=== PATIENT | female | born 1985 | race Caucasian/White ===

== ENCOUNTER 2016-09-16 12:45 | Inpatient (IN) | payer OTHER ==
[~2016-09-16] VITALS: Ht 154.9 cm; Wt 82.6 kg
[2016-09-16 12:53] VITALS: BP 127/90; PULSE 90; RESP 18; O2SAT 97
--- NOTE | 2016-09-16 13:00 | ED.REPORT ---
HPI-Abd Pain F Under 40 Date of Service September 16, 2016 ED Provider: Gian Quinonez DO The pt is a 31 y/o female w/ a hx of appendectomy and recent pneumonia presenting to the ED complaining of abdominal pain onset two days ago. She has also experienced back pain, vomiting, and nausea. The vomiting stopped when she began a diet of water, low acidic fruits, and whole grains two days ago. The pt also admits to decreased appetite, abdominal distention and dark urine this morning. She tried using ibuprofen this morning but it did not help w/ her symptoms. She denies fever, abdominal bruising, dysuria, urinary frequency or diarrhea. The pt was recently diagnosed with pneumonia that lasted for a week and she was put on antibiotics for ten days. She has not consumed any alcohol for 3 weeks. Nursing Notes Stated Complaint: ABDOMINAL PAIN Chief Complaint: Female Abdominal Pain Nursing Notes Reviewed: Yes Allergies: Coded Allergies: No Known Allergies (Unverified , 09/16/16) General Time Seen by MD: 13:00 Chief Complaint Abdominal pain Hx Obtained From: Patient Arrived By: Walk-in Sudden in Onset?: No Onset Occurred: 2 days ago Symptom Duration: Since onset Recent Healthcare: No recent doctor visit, No recent hospitalization Similar Sx Previous: No Past Medical History Past Medical History Pneumonia Past Surgical History Hand tendon surgery Breast reduction Adenoidectomy Reports: Appendectomy, Tonsillectomy Smoking History Light Tobacco Smoker Social History Alcohol Use: 1-3 per week Drug Use: Denies drug use Ambulatory Status Independent Review of Systems Dark urine Loss of appetite Abdominal distention Constitutional: Denies: Fever GI: Reports: Abdominal pain, Nausea, Vomiting, Denies: Diarrhea Female: Denies: Dysuria, Urinary frequency Musculoskeletal: Reports: Back pain Complete sys rev & neg: except as marked. Skin: Denies Bruising Physical Exam Initial Vital Signs Vital Signs (First) Date Time Temp Pulse Resp B/P Pulse Ox O2 Delivery O2 Flow Rate FiO2 09/16/16 12:53 36.6 90 18 127/90 97 Room Air Initial VS: Reviewed General/Constitutional: Awake, Alert Appearance / Presentation: Positive: Obese Respiratory / Chest: Atraumatic, Breath sounds NL, Breath sounds = bilat, No respiratory distress, No rales, No rhonchi, No wheezing Cardiovascular: Heart rate NL, Regular rhythm, Heart sounds NL Abdomen: Atraumatic, Soft Epigastric pain Back: Atraumatic, Full range of motion Head / Eyes: Atraumatic, Normocephalic ENT: Atraumatic, Airway patent Skin: Atraumatic, Color NL, No rash, Warm, Dry Neurologic: Oriented X3, Speech NL Neck: Atraumatic, Supple, Full range of motion Psychiatric: Affect NL, Mood NL Interpretation & Diagnostics Lab Results Interpretation Result Diagram: 09/16/16 1348 09/16/16 1348 Test 09/16/16 13:48 White Blood Count 9.2th/mm3 (3.8-10.1) Red Blood Count 4.44mil/mm3 (3.90-5.20) Hemoglobin 13.7g/dL (12.0-15.6) Hematocrit 40.0% (35.0-46.0) Mean Corpuscular Volume 90.1fL (81-100) Mean Corpuscular Hemoglobin 30.9pg (27.0-35.0) Mean Corpuscular Hemoglobin Concent 34.3% (32.0-37.0) Red Cell Distribution Width 13.1% (12.3-15.4) Platelet Count 274bil/L (150-400) Neutrophils (%) (Auto) 69.4% (40-74) Lymphocytes (%) (Auto) 20.4% (14-46) Monocytes (%) (Auto) 8.6% (4-12) Eosinophils (%) (Auto) 1.1% (0-5) Basophils (%) (Auto) 0.3% (0-3) Sodium Level 137mEq/L (134-144) Potassium Level 3.8mEq/L (3.5-5.2) Chloride Level 99mEq/L (97-108) Carbon Dioxide Level 20mmol/L (18-29) Blood Urea Nitrogen 11mg/dL (6-20) Creatinine 0.39mg/dL (0.57-1.00) Estimat Glomerular Filtration Rate 278mL/min (>59) Glucose Level 102mg/dL (60-99) Calcium Level 9.8mg/dL (8.5-10.1) Magnesium Level 2.1mg/dL (1.6-2.6) Total Bilirubin 3.7mg/dL (0.0-1.2) Aspartate Amino Transf (AST/SGOT) 299U/L (0-50) Alanine Aminotransferase (ALT/SGPT) 740U/L (0-32) Alkaline Phosphatase 176U/L (25-150) Total Protein 7.9g/dL (6.4-8.4) Albumin 4.5g/dL (3.4-5.0) Lipase 2773U/L (13-60) Hold Joel Top Tube Received (Received) Lab Results Interpretation: Urinalysis: bilirubin and urobilinogen Urine negative Re-Eval/Medical Decision Med Decision/Clinical Course Med Decision/Clinical Course: Gallstone pancreatitis. We will admit. Re-Evaluation/Progress : Time of Eval: 14:40 Re-Evaluation/Progress Note: Pt rechecked. Informed pt of need for admission. Pt understands and agrees with plan for admission. All questions addressed. Consultation #1: Referral / Consult Name: Wayne Cuenca MD Requested Call at: 14:49 Investigative Analyst: Will see patient, Agrees with eval, Agrees with plan Note: Discussed pt's case w/ Dr. Cuenca, GI, recommends Zosyn, aggressive IVF, MRCP in AM, will see either tonight or in AM Consultation #2: Referral / Consult Name: Virgilio Woodson MD Consulted With: Hospitalist Call Returned at: 15:27 Investigative Analyst: Accepts admit Counseled Regarding: Diagnosis, Lab results, Need for admission Discharge & Departure Primary Impression: Gallstone pancreatitis Disposition: ADMITTED TO HOSPITAL Discharge Condition All VS Reviewed: Yes Condition: Stable Referrals: [facility] Scribe Attestation Portions of this note were transcribed by Guanako Razo and Kimo Aranda. I, Dr. Leonel Peraza personally performed the history, physical exam and medical decision- making; I reviewed and confirmed the accuracy of the information in the transcribed note. Signed by: Destinee Forde, 09/16/16 and 1353. copies to: [facility] Gian Quinonez DO September 16, 2016 13:00 Guanako Razo September 16, 2016 13:25 KIMO ARANDA September 16, 2016 14:01
[2016-09-16] MEDS ORDERED: Ondansetron 2 mg/mL 2 mL Inj IVPUSH PRN ×2 (13:25→15:30)
[2016-09-16] MEDS ORDERED: 0.9% Sodium Chloride 1,000 ML IV ONE ×2 (13:25→16:20)
[2016-09-16 14:09] LABS: BASOPHILS % (AUTO) 0.3 % (0-3); EOSINOPHILS % (AUTO) 1.1 % (0-5); MONOCYTES % (AUTO) 8.6 % (4-12); Mean Corpuscular Hemoglobin 30.9 pg (27.0-35.0); Mean Corpuscular Volume 90.1 fL (81-100); NEUTROPHILS % (AUTO) 69.4 % (40-74); Platelet Count 274 bil/L (150-400)
[2016-09-16 14:24] LABS: Magnesium 2.1 mg/dL (1.6-2.6)
[2016-09-16] MEDS ORDERED: 0.9% Sodium Chloride 1,000 ML IV SCH (14:50)
[2016-09-16] MEDS ORDERED: Piperacillin-Tazo 3.375 Gm Inj 3.375 GM in Dextrose 5% Minibag Plus 50 ML IV ONE (14:55)
[2016-09-16 15:29] VITALS: BP 113/71; PULSE 69; RESP 16; O2SAT 99
[2016-09-16] MEDS ORDERED: Alum-Mag Hydrox-Simeth 30 mL Suspension PO PRN ×2 (15:30→15:50)
--- NOTE | 2016-09-16 15:34 | DRSVH ---
PROCEDURE: US ABDOMEN, LIMITED ([id number]) INDICATIONS: upper abd pain TECHNIQUE: Real-time focused scanning was performed of the abdomen, with image documentation. COMPARISON: None. FINDINGS: Gallbladder contains multiple small calculi, less than 5 mm. There is borderline wall thick ening however no pericholecystic fluid or sonographic [place] sign. No intra-or extrahepatic biliary d uctal dilatation. The pancreas is not well seen due to shadowing bowel gas; recommend clinical and if needed laboratory correlation to pancreatic enzymes. IMPRESSION: Cholelithiasis and borderline gallbladder wall thickening (technically age indeterminate finding.) Ho wever no sonographic [place] sign or pericholecystic fluid. Recommend clinical correlation and to LFTs Dictated by: Tor Christensen M.D. on 09/16/2016 at 15:30 Approved by: Tor Christensen M.D. on 09/16/2016 at 15:32
[2016-09-16 15:38] VITALS: BP 113/71; PULSE 69; RESP 16; O2SAT 99
[2016-09-16] MEDS ORDERED: Polyethylene Glycol (PEG) 17 Gm Powder PO PRN (15:50)
--- NOTE | 2016-09-16 16:00 | NUR ---
Arrived on Unit Patient arrived on floor from ED in stable condition. Patient ambulated from stretcher to bed independently. Patient reported 6/10 abdominal/back pain. 0.5 mg of Morphine given. Denies nausea at this time. VSS. A&Ox3. Admit completed. Patient orientated to call light, bed, and phone. Call light and tray table within reach. Will continue to monitor patient hourly.
[2016-09-16 16:06] VITALS: BP 120/77; PULSE 70; RESP 17; O2SAT 99
--- NOTE | 2016-09-16 16:07 | PCM.HPMED ---
Subjective Date of Service September 16, 2016 Primary Provider: Admitting Physician: Virgilio Woodson MD Primary Care Physician: Amita Attending Physician: Virgilio Woodson MD Admit Status: From the Emergency Department, Full Admit, Admit to Red Team Chief Complaint: Back pain/2 days nausea and vomiting/2 days Dark urine one day History of Present Illness: 31-year-old lady with no significant past medical history except recently treated for pneumonia with antibiotics 2 weeks ago presented to the emergency room due to back pain, nausea and vomiting of 2 days. She states she started to have epigastric and back pain 2 days ago. Pain is dull, intermittent, initially 4/10 pain. This was followed by episodes of vomiting and nausea. Symptoms slightly improved yesterday . Yesterday she noted dark urine and continued to drink more water. She went to work today and felt more severe episode of back pain 8/10 and nausea which prompted ED visit. Did not notice any jaundice. noted dark urine. Denies fever. Denies diarrhea. Drinks 2 glasses of wine /week ED course : Vital signs and exam are unremarkable. CBC unremarkable. Elevated liver enzymes total bilirubin 3.7, AST 299, ALT 740, alkaline phosphatase 176, lipase 2773 US :cholelithiasis with no evidence of cholecystitis GI Dr Cuenca contacted by ED, and she requested for gallbladder pancreatitis Review of Systems: A comprehensive review of systems performed, pertinent positives and negatives included in history of present illness Allergies Coded Allergies: No Known Allergies (Unverified , 09/16/16) Home Medications Recently completed unknown antibiotics PMH Recent pneumonia Surgical History Tonsillectomy/adenoidectomy as a child Breast reduction at age 25 Appendectomy at age 22 Hand tendon surgery Family History Both parents are alive. They live in [place] and coming tomorrow Maternal grandmother had history of bladder cancer and breast cancer No other significant family medical history Social History Hx Alcohol Use: Yes (2-3 glass of wine /week ) Hx Substance Use: Yes (occasional marijuana) Smoking Status: Light Tobacco Smoker Exam Vital Signs Vital Sign - Last Date Time Temp Pulse Resp B/P Pulse Ox O2 Delivery O2 Flow Rate FiO2 09/16/16 15:38 36.4 69 16 113/71 99 Room Air Exam Gen. patient is lying comfortably in hospital bed HEENT: Head is normocephalic atraumatic, Pupils equal and reactive, slightly jaundiced Lungs clear to auscultation bilaterally Heart regular rate and rhythm without murmurs gallops or rubs Abdomen soft nontender without hepatosplenomegaly Extremities pulses are present dorsalis pedis posterior tibialis and radial. tSkin is warm and dry there are no rashes, Psych alert and oriented to person place and time Neuro cranial nerves II through XII are grossly intact Lymph: There is no lymphadenopathy appreciated in the cervical supra infraclavicular regions : no thao Lab and Diagnostics Result Diagram: 09/16/16 1348 09/16/16 1348 X-Rays, CTs and MRIs PROCEDURE: US ABDOMEN, LIMITED ([id number]) INDICATIONS: upper abd pain TECHNIQUE: Real-time focused scanning was performed of the abdomen, with image documentation. COMPARISON: None. FINDINGS: Gallbladder contains multiple small calculi, less than 5 mm. There is borderline wall thickening however no pericholecystic fluid or sonographic [place] sign. No intra-or extrahepatic biliary ductal dilatation. The pancreas is not well seen due to shadowing bowel gas; recommend clinical and if needed laboratory correlation to pancreatic enzymes. IMPRESSION: Cholelithiasis and borderline gallbladder wall thickening (technically age indeterminate finding.) However no sonographic [place] sign or pericholecystic fluid. Recommend clinical correlation and to LFTs Dictated by: Tor Christensen M.D. on 09/16/2016 at 15:30 Assessment & Plan 31-year-old lady with no significant past medical history except recently treated for pneumonia with antibiotics 2 weeks ago presented to the emergency room due to back pain, nausea and vomiting of 2 days. # Gallstone pancreatitis,acute,poa - consistent with gallstone pancreatitis. Total bilirubin 3.7, AST 299, ALT 740 , alkaline phosphatase 176, lipase 2773,US gall stones. No significant alcohol use -Fluid resuscitation NS at 150ml/h, received bolus emergency room -Pain control his morphine -ED discussed case with Dr Cuenca , he recommends fluid resuscitation and IV Zosyn. Recommends MRCP tomorrow morning and decide ERCP vs surgery -Zofran when necessary -LFT and lipase in a.m. -Nothing by mouth -MRCP tomorrow morning -Dr Cuenca consulted by ED # Elevated liver enzymes due to above ppx Protonix and heparin sc full code Patient admitted under inpatient status with expected length of stay > 2 midnights for severity of present symptoms, complexities of treatment plan and risk for adverse events Resuscitation Status: CPR: Attempt Resuscitation Virgilio Woodson MD September 16, 2016 16:07
[2016-09-16] MEDS: 0.9% Sodium Chloride 1,000 ML IV SCH ×2 (16:13→22:04)
[2016-09-16 16:30] VITALS: PULSE 65
[2016-09-16] MEDS: Heparin 5,000 Unit/mL Inj SUBQ SCH (16:58)
[2016-09-16] MEDS: Pantoprazole 4 mg/mL 10 mL Inj IVPUSH SCH (16:58)
[2016-09-16] MEDS ORDERED: LORA1TAB PO (18:15)
[2016-09-16] MEDS ORDERED: IBUP400T22 PO (18:16)
[2016-09-16] MEDS: Ondansetron 2 mg/mL 2 mL Inj IVPUSH PRN (19:11)
[2016-09-16 21:28] VITALS: BP 100/68; PULSE 65; RESP 18; O2SAT 100
[2016-09-16] MEDS: Piperacillin-Tazo 3.375 Gm Inj 3.375 GM in Dextrose 5% Minibag Plus 50 ML IV SCH (23:12)
[2016-09-17] VITALS (9 sets, daily range): BP systolic 103–108; BP diastolic 69–74; PULSE 65–87; RESP 16–20; O2SAT 97–99
--- NOTE | 2016-09-17 00:09 | NUR ---
Pain/ nausea Patient comfortable at this time with combination of pain medication and heat. Tolerating ABX with no noted s/s of adverse side effects. States precursor to nausea are belches, denial of nausea. Pain managed effectively with PRNs. Sleeping soundly at this time. Bed in low position, HOB @ 30 degrees, call light within reach, intentional rounding. Will continue plan of care.
[2016-09-17] MEDS: Ondansetron 2 mg/mL 2 mL Inj IVPUSH PRN ×4 (00:39→18:22)
[2016-09-17] MEDS: Heparin 5,000 Unit/mL Inj SUBQ SCH ×4 (00:39→23:48)
[2016-09-17 05:56] LABS: BASOPHILS % (AUTO) 0.1 % (0-3); EOSINOPHILS % (AUTO) 1.2 % (0-5); MONOCYTES % (AUTO) 7.2 % (4-12); Mean Corpuscular Volume 93.3 fL (81-100); Platelet Count 245 bil/L (150-400)
[2016-09-17 06:16] LABS: Magnesium 1.9 mg/dL (1.6-2.6)
[2016-09-17] MEDS: 0.9% Sodium Chloride 1,000 ML IV SCH ×3 (06:18→18:27)
[2016-09-17] MEDS: Piperacillin-Tazo 3.375 Gm Inj 3.375 GM in Dextrose 5% Minibag Plus 50 ML IV SCH ×3 (07:22→23:48)
[2016-09-17] MEDS: Pantoprazole 4 mg/mL 10 mL Inj IVPUSH SCH (07:46)
--- NOTE | 2016-09-17 12:09 | NUR ---
MRCP Pt off unit for MRCP with Dr. Cuenca. 8mg Zofran given prior to transport d/t nausea and pt reported tolerating the procedure well. Pain has been well controlled this morning with the K-pad on her back and so far has not needed any medications. Will continue to monitor closely and round hourly.
--- NOTE | 2016-09-17 12:17 | PCM.PNMED ---
Subjective Date of Service September 17, 2016 Subjective pt had very mild abdominal pain on RUQ, epigastric, much better than yesterday denied diarrhea, constipation kept in NPO awaits MRCP today Exam Vital Signs Vital Sign - Last Date Time Temp Pulse Resp B/P Pulse Ox O2 Delivery O2 Flow Rate FiO2 09/17/16 05:55 36.7 87 20 108/71 99 Room Air Intake and Output 09/16/16 09/16/16 09/17/16 Cumulative From/Thru 15:00 23:00 07:00 09/16/16 12:53 - 09/17/16 05:55 Intake Total 1000 ml 2265 ml 1574 ml 4839 ml Output Total 300 ml 650 ml 950 ml Balance 1000 ml 1965 ml 924 ml 3889 ml Intake Oral 0 ml 0 ml 0 ml IV Total 1000 ml 2265 ml 1574 ml 4839 ml Output Urine Total 300 ml 650 ml 950 ml # Voids 1 1 # Bowel Movements 0 0 Exam NAD, comfortably laying down on the bed no JVD, MMM, no LAD RRR, nl s1, s2 no mrg CTAB, no w,c S,ND,mild ttp on RUQ, hypoactive BS+ warm, no edema, pulses 2/2 Lab and Diagnostics Result Diagram: 09/17/1651409/17/1615 X-Rays, CTs and MRIs PROCEDURE: US ABDOMEN, LIMITED ([id number]) INDICATIONS: upper abd pain TECHNIQUE: Real-time focused scanning was performed of the abdomen, with image documentation. COMPARISON: None. FINDINGS: Gallbladder contains multiple small calculi, less than 5 mm. There is borderline wall thickening however no pericholecystic fluid or sonographic [place] sign. No intra-or extrahepatic biliary ductal dilatation. The pancreas is not well seen due to shadowing bowel gas; recommend clinical and if needed laboratory correlation to pancreatic enzymes. IMPRESSION: Cholelithiasis and borderline gallbladder wall thickening (technically age indeterminate finding.) However no sonographic [place] sign or pericholecystic fluid. Recommend clinical correlation and to LFTs Dictated by: Tor Christensen M.D. on 09/16/2016 at 15:30 Assessment & Plan 31-year-old lady with no significant past medical history except recently treated for pneumonia with antibiotics 2 weeks ago presented to the emergency room due to back pain, nausea and vomiting of 2 days. # Gallstone pancreatitis,acute,poa, consistent with gallstone pancreatitis. First episode, On admission, Total bilirubin 3.7, AST 299, ALT 740, alkaline phosphatase 176, lipase 2773,US gall stones. No significant alcohol use -pt clinically stable, liver enzymes/lipase improving, afebrile. -continue Fluid resuscitation NS at 150ml/h, received bolus emergency room, -Pain control his morphine -ED discussed case with Dr Cuenca , he recommends fluid resuscitation and IV Zosyn. continue for now - MRCP today, decide ERCP vs surgery, will consider surgery consult -Zofran when necessary -Nothing by mouth -MRCP tomorrow morning -Dr Cuenca consulted by ED # Elevated liver enzymes due to above ppx Protonix and heparin sc full code dispo: likely 1-2more days, Resuscitation Status: CPR: Attempt Resuscitation Time spent 35min Aurelio Lubin MD September 17, 2016 08:38
--- NOTE | 2016-09-17 12:43 | DRSVH ---
PROCEDURE: MR ABDOMEN MRCP INDICATIONS: GALLSTONE/PANCREATITIS TECHNIQUE: Coronal HASTE through the abdomen, axial 2-D FLASH in- and [id number], and breath-hold T2 FSE with fat saturation through the biliary system and pancreas. Oblique coronal and axial thin-slice HASTE, radial thick-slab HASTE centered on the extrahepatic bile ducts. Intravenous secretin: Not requested. COMPARISON: [facility], , ABDOMEN [facility], 09/16/2016, 14:39. FINDINGS: Image quality: Excellent. Pancreas and biliary system: Intra- and extra-hepatic biliary ducts are non dilated. Pancreas is no rmal in morphology, without adjacent soft tissue edema. No peripancreatic fluid. Pancreatic duct is normal in caliber, without developmental anomalies. There are gallstones within gallbladder including the gallbladder neck. There is a possible stone in the cystic duct. Mild gallbladder wall thickening and a small amount of pericholecystic fluid suggest acute cholecystitis. Other solid organs: Liver and spleen are normal in size. There are multiple cysts in the spleen. No adrenal nodules. Both kidneys are normal in size, without hydronephrosis. Nodes and vessels: No retroperitoneal or mesenteric adenopathy by size criteria. Aorta and inferior vena cava are normal in size. Bowel and peritoneum: Unenhanced bowel loops are normal in caliber. No free fluid. Lung bases: No basal pleural effusions. Heart size is normal. Bones and soft tissues: No ventral hernias. Bone marrow is of normal overall signal. IMPRESSION: 1. Cholelithiasis with stones in the gallbladder neck and a possible cystic duct stone. There is mild gallbladder wall thickening and a small amount of pericholecystic fluid. Recommend clinical correlat ion for acute cholecystitis. 2. Normal MR appearance of pancreas. 3. Splenic cysts. Dictated by: Nic Resendiz M.D. on 09/17/2016 at 11:17 Approved by: Nic Resendiz M.D. on 09/17/2016 at 12:41
--- NOTE | 2016-09-17 13:52 | CONS ---
[address] [address] CONSULTATION REPORT PATIENT: SRAVANTHI CARLIN : 1985 MR#: [id number] ADMIT: 09/16/2016 JOB ID: [id number] DATE OF SERVICE: 09/17/2016 REQUESTING PROVIDER: Ketan Quinonez DO. REASON FOR CONSULTATION: Gallstone pancreatitis. HISTORY OF PRESENT ILLNESS: This is a 31-year-old female who presented with back pain radiating into the front with darkening of the urine. She has had a little bit of chills but no fevers. Four nights ago she had quite a bit of nausea and vomiting from about 10:30 to about 3 a.m. She was found to have a lipase of over 2700 and abnormal liver chemistries. with a bilirubin of 3.7. She had no leukocytosis. Initial imaging with ultrasound disclosed gallstones and borderline gallbladder wall thickening. The patient was commenced on antibiotics, and overnight, had significant relief of abdominal pain and back pain. There is still a small amount of residual pressure in the back at present. She had followup MRCP imaging this morning at my recommendation and I have reviewed the study. The official report is not yet dictated but I do not see any retained common duct stones. She has a considerable stone burden within the gallbladder lumen. No sign currently of Mirizzi's. ALLERGIES: No known drug allergies. MEDICATIONS: Ibuprofen and Ativan as needed. PAST MEDICAL HISTORY: Recent pneumonia. PAST SURGICAL HISTORY: Appendectomy, breast reduction, hand/thumb surgery and tonsillectomy as a kid. FAMILY HISTORY: No gallbladder problems in the family. SOCIAL HISTORY: Very rare tobacco, occasional alcohol. She reports she is a "lightweight." No children. 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 REVIEW OF SYSTEMS: She has had considerable fluctuation in body weight. At one point, she was down to 120 pounds following her breast reduction. She has gained some of this back of late. Otherwise, no complaints within her review apart from what is described above in HPI. OBJECTIVE: Vital signs are stable. Afebrile, 36.6, pulse 76, breathing 16, blood pressure 108/74, pulse ox 98% on room air. The patient was alert, oriented, appropriate, cooperative, conversational, no distress. Sclerae anicteric. Lungs clear bilaterally. Heart regular. Abdomen is soft, nondistended. I did not appreciate any significant tenderness to palpation. No significant lower extremity edema. LABS: White count 6.9, hematocrit 36.1, platelets 245. Bilirubin is down to 1.3. AST is down to 165. ALT is down to 470. Alk phos has normalized to 134. Lipase has come down from 2700+ to 723. IMAGING: As above. I personally reviewed the MRCP. ASSESSMENT AND PLAN: A 31-year-old female with gallstone pancreatitis. Based on symptoms, labs, and the updated MR imaging this morning, it appears as though she has passed the culprit stone. I would recommend continuation of the antibiotics for now. It would be reasonable in that she is quite hungry currently (a good sign clinically) to initiate only clear liquids as tolerated. ERCP is not indicated at present. I have discussed the case with Dr. Hicks, who plans on seeing the patient a little later this afternoon in consultation to plan out the timing of laparoscopic cholecystectomy.
--- NOTE | 2016-09-17 14:04 | NUR ---
Social Work- Screening Data: EMR reviewed. Pt is a 31 year old female admitted 09/16/16 for gall stone, pancreatitis per H&P. Surgery is following pt. Pt's insurance is [employer]. Pt has no PCP listed, though pt states her PCP is Yesi Vázquez CERTIFIED [employer] in [place]. [employer] met with pt at bedside regarding discharge plan. Pt alert and oriented x3. Pt resides in [facility] where she is independent at baseline. Pt's mother is arriving this evening to obtain pt's vehicle and assist her with any needs at discharge. Pt is not interested in any DPOA paperwork at this time, states her mother Pallavi Farris [phone] is decision maker. [employer] wrote phone number and plan on whiteboard in room. Pt to discharge home with mother to transport via POV. No anticipated discharge needs, SW will continue to follow if needs arise. Assessment: Pt who is independent at baseline. Plan: Pt to discharge home with mother to transport via POV. No anticipated discharge needs, SW will continue to follow if needs arise. Hafsa Pritchett MSW
[2016-09-18] VITALS (19 sets, daily range): BP systolic 104–126; BP diastolic 61–82; PULSE 52–92; RESP 10–17; O2SAT 93–100
[2016-09-18] MEDS: Ondansetron 2 mg/mL 2 mL Inj IVPUSH PRN ×2 (04:43→13:40)
[2016-09-18] MEDS: 0.9% Sodium Chloride 1,000 ML IV SCH ×4 (04:54→18:12)
--- NOTE | 2016-09-18 05:40 | NUR ---
Pain/Nausea Pain and nausea well controlled with 2mg morphine and 4mg zofran, given PRN. Appears to have slept most of the shift. NPO since midnight in case of surgery. Hourly rounding ongoing.
[2016-09-18 06:20] LABS: BASOPHILS % (AUTO) 0.4 % (0-3); EOSINOPHILS % (AUTO) 2.2 % (0-5); MONOCYTES % (AUTO) 7.5 % (4-12); Mean Corpuscular Hemoglobin 30.6 pg (27.0-35.0); Mean Corpuscular Volume 91.8 fL (81-100); NEUTROPHILS % (AUTO) 46.1 % (40-74); Platelet Count 198 bil/L (150-400)
[2016-09-18] MEDS: Pantoprazole 4 mg/mL 10 mL Inj IVPUSH SCH (06:39)
[2016-09-18 06:40] LABS: Magnesium 1.8 mg/dL (1.6-2.6); Phosphorus 2.9 mg/dL (2.5-4.9)
[2016-09-18] MEDS: Piperacillin-Tazo 3.375 Gm Inj 3.375 GM in Dextrose 5% Minibag Plus 50 ML IV SCH ×3 (07:14→23:27)
[2016-09-18] MEDS: Heparin 5,000 Unit/mL Inj SUBQ SCH ×4 (07:56→23:31)
[2016-09-18 08:34] LABS: INR 0.92 ratio
--- NOTE | 2016-09-18 08:44 | PCM.CONSUR ---
Subjective Date of Service: September 18, 2016 History of Present Illness Ms. Farris is a 31 year old female with recent past medical history of pneumonia treated with antibiotics 2 weeks ago presented to the ED secondary to the mid back pain with radiation to epigastric area, nausea and vomiting 2 days. She initially described her pain as dull and intermittent a "stomach pain " initially about a 4/10, then raising to about an 8/10 while at work. At time of interview today she states pain is mostly relieved, denies fever/chills, current N/V, CP or SOB. She states she has never had symptoms such as this before, to her knowledge has never had any problems with her gallbladder or pancreas prior to this hospital admission. Review of systems negative except as mentioned in the history of present illness Initially lab values in the ED were: Lipase - 2773, Total bili 3.7, AST/ALT - 299/740, Alk. Phos - 176. WBC 9.2, afebrile. ABD US showed Cholelithiasis and borderline gallbladder wall thickening. MRCP also showed Cholelithiasis with stones in the gallbladder neck and a possible cystic duct stone. There is mild gallbladder wall thickening and a small amount of pericholecystic fluid and a normal MR appearance of pancreas. At time of interview today: Lipase - 77, total bili 0.9, AST/ALT - 79/334, Alk phos 121. Still without leukocytosis and afebrile. Reason for Consultation Gallstone pancreatitis Allergy Allergies: Coded Allergies: No Known Allergies (Unverified , 09/16/16) Medications Last Dose Blood Thinner: September 17, 2016 Hydrocodone-Acetaminophen 5-325 mg (Hydrocodone-Acetaminophen 5-325 mg) 1 Each Tablet 1-2 TABLET PO Q3H PRN PRN For Pain Prescribed by: ALISON MALAGON MD Ibuprofen (Ibuprofen) 400 Mg Tablet 400 MG PO QID PRN PRN For Pain (Reported) Last Taken: Unknown Dose on 09/16/16 0800 Lorazepam (Lorazepam) 1 Mg Tablet 1 MG PO DIRECTED PRN PRN For Anxiety (Reported) Last Taken: Unknown Dose on Unknown Date & Time Past Surgical History Surgeries: Yes (breast reduction age 25, right thumb ligament surgery, appendectomy age 22, tonsillectomy as a child) Other Pertinent Data: Unmarried, no children. 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 Hx Alcohol Use: Yes (very mild, 1-2 drinks per month) Hx Substance Use: Yes (occasional marijuana use) Hx Tobacco Use: Yes (very rare, 1 cigarette per month) Objective Exam Vital Signs & I/O Vital Sign- Last 8 Hours Date Time Temp Pulse Resp B/P Pulse Ox O2 Delivery O2 Flow Rate FiO2 09/18/16 07:52 36.7 72 16 115/78 99 Room Air 09/18/16 04:35 36.8 60 16 110/75 99 Room Air Intake and Output- Last 8 Hour 09/18/16 Cumulative From/Thru 07:00 09/16/16 12:53 - 09/18/16 05:47 Intake Total 1394 ml 8769 ml Output Total 850 ml 3250 ml Balance 544 ml 5519 ml Intake Oral 400 ml 1000 ml IV Total 994 ml 7769 ml Output Urine Total 850 ml 3250 ml # Voids 1 # Bowel Movements 0 1 Lab & Micro Results Laboratory Tests Test 09/18/16 05:38 09/18/16 08:10 White Blood Count 4.6th/mm3 (3.8-10.1) Red Blood Count 3.79mil/mm3 (3.90-5.20) Hemoglobin 11.6g/dL (12.0-15.6) Hematocrit 34.8% (35.0-46.0) Mean Corpuscular Volume 91.8fL (81-100) Mean Corpuscular Hemoglobin 30.6pg (27.0-35.0) Mean Corpuscular Hemoglobin Concent 33.3% (32.0-37.0) Red Cell Distribution Width 13.0% (12.3-15.4) Platelet Count 198bil/L (150-400) Neutrophils (%) (Auto) 46.1% (40-74) Lymphocytes (%) (Auto) 43.8% (14-46) Monocytes (%) (Auto) 7.5% (4-12) Eosinophils (%) (Auto) 2.2% (0-5) Basophils (%) (Auto) 0.4% (0-3) Sodium Level 141mEq/L (134-144) Potassium Level 3.9mEq/L (3.5-5.2) Chloride Level 106mEq/L (97-108) Carbon Dioxide Level 20mmol/L (18-29) Blood Urea Nitrogen 6mg/dL (6-20) Creatinine 0.49mg/dL (0.57-1.00) Estimat Glomerular Filtration Rate 214mL/min (>59) Glucose Level 83mg/dL (60-99) Calcium Level 8.7mg/dL (8.5-10.1) Phosphorus Level 2.9mg/dL (2.5-4.9) Magnesium Level 1.8mg/dL (1.6-2.6) Total Bilirubin 0.9mg/dL (0.0-1.2) Aspartate Amino Transf (AST/SGOT) 79U/L (0-50) Alanine Aminotransferase (ALT/SGPT) 334U/L (0-32) Alkaline Phosphatase 121U/L (25-150) Total Protein 6.0g/dL (6.4-8.4) Albumin 3.5g/dL (3.4-5.0) Lipase 77U/L (13-60) Result Diagram: 09/18/1653709/18/16537 H&P Surgical Exam Exam General: Alert, Oriented X3, Cooperative HEENT: Within normal limits & unremarkable, PERRLA Respiratory: Clear to Auscultation Cardiac: Regular Rate/Rhythm, No Murmurs/Rubs/Gallops Abdomen: Soft, No tenderness, Other (no rebound tenderness, negative Easley's sign.) Assessment & Plan Assessment Assessment & Plan: 1. Gallstone pancreatitis - Based on downward trend of relevant lab values as well as negative MR findings of common duct stone, patient most likely passed offending stone - Patient is agreed to laparoscopic cholecystectomy scheduled for today - MR did show gallstones and gallbladder and all bladder neck, possible cystic duct stone - Continue antibiotics Zosyn - Nothing by mouth - Continue normal saline 150 mL per hour - Pain control with morphine - Zofran when necessary - CBC/CMP tomorrow - Stop heparin subcutaneous Resuscitation Status: CPR: Attempt Resuscitation Attending Statement: I personally interviewed and examined the pt, and I agree with Dr. Lagunas's assessment and plan. OR today. ESTHER LAGUNAS DO September 18, 2016 08:44 Anurag Kern MD September 24, 2016 16:30
--- NOTE | 2016-09-18 10:17 | PCM.PNMED ---
Subjective Date of Service September 18, 2016 Subjective no overnight event kept NPO after MN scheduled for lap felice today Exam Vital Signs Vital Sign - Last Date Time Temp Pulse Resp B/P Pulse Ox O2 Delivery O2 Flow Rate FiO2 09/18/16 07:52 36.7 72 16 115/78 99 Room Air Intake and Output 09/17/16 09/17/16 09/18/16 Cumulative From/Thru 15:00 23:00 07:00 09/16/16 12:53 - 09/18/16 05:47 Intake Total 2536 ml 1394 ml 8769 ml Output Total 1450 ml 850 ml 3250 ml Balance 1086 ml 544 ml 5519 ml Intake Oral 600 ml 400 ml 1000 ml IV Total 1936 ml 994 ml 7769 ml Output Urine Total 1450 ml 850 ml 3250 ml # Voids 1 # Bowel Movements 1 0 1 Exam NAD, comfortably laying down on the bed no JVD, MMM, no LAD RRR, nl s1, s2 no mrg CTAB, no w,c S,ND,mild ttp on RUQ, hypoactive BS+ warm, no edema, pulses 2/2 IVs and Medications Medications Reviewed: Medications were reviewed in detail Lab and Diagnostics Result Diagram: 09/18/1638 09/18/1638 X-Rays, CTs and MRIs PROCEDURE: US ABDOMEN, LIMITED ([id number]) INDICATIONS: upper abd pain TECHNIQUE: Real-time focused scanning was performed of the abdomen, with image documentation. COMPARISON: None. FINDINGS: Gallbladder contains multiple small calculi, less than 5 mm. There is borderline wall thickening however no pericholecystic fluid or sonographic Easley sign. No intra-or extrahepatic biliary ductal dilatation. The pancreas is not well seen due to shadowing bowel gas; recommend clinical and if needed laboratory correlation to pancreatic enzymes. IMPRESSION: Cholelithiasis and borderline gallbladder wall thickening (technically age indeterminate finding.) However no sonographic Easley sign or pericholecystic fluid. Recommend clinical correlation and to LFTs Dictated by: Tor Christensen M.D. on 09/16/2016 at 15:30 Assessment & Plan 31-year-old lady with no significant past medical history except recently treated for pneumonia with antibiotics 2 weeks ago presented to the emergency room due to back pain, nausea and vomiting of 2 days. #acute cholecysitis/probable GB pancreatitis,acute,poa, First episode, On admission, Total bilirubin 3.7, AST 299, ALT 740, alkaline phosphatase 176, lipase 2773,US gall stones. No significant alcohol use. MRCP showed Cholelithiasis with stones in the gallbladder neck and a possible cystic duct stone, normal appearing pancreas. -pt clinically stable, liver enzymes/lipase improving, afebrile. -plan for cystectomy today, appreciate -continue Fluid resuscitation NS at 150ml/h, received bolus emergency room, -Pain control his morphine -ED discussed case with Dr Cuenca , he recommends fluid resuscitation and IV Zosyn. continue for now -Zofran when necessary # Elevated liver enzymes due to above ppx Protonix and heparin sc full code dispo: likely 1-2more days post-op course Resuscitation Status: CPR: Attempt Resuscitation Time spent 35min Aurelio Lubin MD September 18, 2016 10:17
[2016-09-18] MEDS ORDERED: Lactated Ringer's 1,000 ML IV ONE ×2 (10:52→11:30)
--- NOTE | 2016-09-18 10:54 | NUR ---
Off unit Pt off unit to OR for laparoscopic cholecystectomy; consent signed with Dr. Kern at bedside. Mother accompanied pt to PreOp and all questions answered at this time. Pt denies nausea and pain is well controlled at 10. NPO since midnight.
--- NOTE | 2016-09-18 11:03 | PCM.HPANE ---
Patient Data Date of Service: September 18, 2016 Surgeon Admitting Provider:Virgilio Woodson MD Attending Provider:Virgilio Woodson MD Primary Care Physician:Nopcp Other Provider: Reason for Visit Gall Stone, Pancreatitis GALL STONE, PANCREATITIS Ht/WT & BMI Height (Feet): 5 Height (Inches): 1.00 Weight (Kilograms): 79.000 Body Mass Index 32.34 Allergies Coded Allergies: No Known Allergies (Unverified , 09/16/16) Past Anesthesia History Anesthesia History: Denies:: Abnormal Airway, Anesthesia Reactions, Difficult Intubation, Fam Anesthesia Reaction, Fam Malignant Hypertherm, Malignant Hyperthermia Diabetes History Hx Diabetes?: No MRSA MRSA: No Medications Last Dose Blood Thinner: September 17, 2016 Hypertension Medication: No Home Meds Incl Beta Jasmin: No Reported Medications Ibuprofen 400 Mg Cuetqe200 Mg PO QID PRN For Pain Ref 0 09/16/16 Lorazepam 1 Mg Tablet1 Mg PO DIRECTED PRN For Anxiety Ref 0 09/16/16 History History of ENT Problems?: No HEENT History: Denies:: Abnormal Airway Cataracts Difficult Intubation Dysphagia Glaucoma Hearing Problem Sinus Problem TMJ Denture Type: None Teeth Condition: Within Normal Limits Hx of Heart Problems?: No Cardiovascular History: Positive for:: Heart Murmur (as child) Denies:: AICD Abdominal Aortic Aneurism Atrial Fibrillation Cardiac Surgery Chest Pain Congestive Heart Failure Coronary Artery Disease Edema Hypertension Irregular Heartbeat Pacemaker Peripheral Vascular Rheumatic Fever Thrombophlebitis Valvular Heart Disease Hx of Respiratory Problem?: Yes Respiratory History: Positive for:: Pneumonia (2 weeks ago) Hx Neurologic Problems?: No Hx of GI Problems?: Yes Hx of Problems?: Yes Genitourinary History: Positive for:: Urinary Tract Infection Female Hx: Positive for:: Endometriosis Denies:: Currently Pelvic Inflammatory Problems with Breasts? 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 Hx Alcohol Use: Yes (very mild, 1-2 drinks per month)Hx Substance Use: Yes ( occasional marijuana use) Smoking Status: Light Tobacco Smoker Have You Smoked inLast 12 mo: Yes (every once and a while) Stop/Bang Treated for Sleep Apnea?: No Do You Have a CPAP Machine?: No S-Snoring: Do You Snore Loudly: No T-Tired: feel tired, fatigued: Yes O-Obsered: Observed not breath: No P-Blood Pressure: treated: No B- Body Mass Index > 35 kg/m2: No A- Age over 50: No N- Neck Large Circumference: No G- Gender Male: No TYE Total Score: 1 TYE Risk Assessment: Low Risk, <3 Yes Risk Assessment Category Category 1A: Patient has history of documented sleep apnea, and HAS NOT received any narcotic, sedative or anesthesia administration during this stay. Category 1B: Patient has history of documented sleep apnea, and HAS received any narcotic , sedative or anesthesia administration during this stay Category 2: Patient has SUSPECTED Obstructive Sleep Apnea, and HAS received any narcotic , sedative or anesthesia administration during this stay. Category 3: Patient has SUSPECTED Obstructive Sleep Apnea and HAS NOT received narcotic, sedative or anesthesia administration during this stay. Category 4: Outpatient in Procedural Areas with known sleep apnea or who screen positive for High Risk via the STOP/BANG questionnaire. Exam Exam Vital Signs Vital Signs Date Time Temp Pulse Resp B/P Pulse Ox O2 Delivery O2 Flow Rate FiO2 09/18/16 10:17 92 09/18/16 07:52 36.7 72 16 115/78 99 Room Air 09/18/16 04:35 36.8 60 16 110/75 99 Room Air General Appearance: Alert, Oriented X3, Cooperative, No Acute Distress HEENT/AIRWAY: MP 2 Lungs: Normal Air Movement Heart: Exam Unremarkable Meds/Labs/Diagnostics Labs Test 09/16/16 13:48 09/16/16 16:00 09/18/16 05:38 09/18/16 08:10 Hold Joel Top Tube Received (Received) Hold Urine Received (Received) White Blood Count 4.6th/mm3 (3.8-10.1) Red Blood Count 3.79mil/mm3 (3.90-5.20) Hemoglobin 11.6g/dL (12.0-15.6) Hematocrit 34.8% (35.0-46.0) Mean Corpuscular Volume 91.8fL (81-100) Mean Corpuscular Hemoglobin 30.6pg (27.0-35.0) Mean Corpuscular Hemoglobin Concent 33.3% (32.0-37.0) Red Cell Distribution Width 13.0% (12.3-15.4) Platelet Count 198bil/L (150-400) Neutrophils (%) (Auto) 46.1% (40-74) Lymphocytes (%) (Auto) 43.8% (14-46) Monocytes (%) (Auto) 7.5% (4-12) Eosinophils (%) (Auto) 2.2% (0-5) Basophils (%) (Auto) 0.4% (0-3) Sodium Level 141mEq/L (134-144) Potassium Level 3.9mEq/L (3.5-5.2) Chloride Level 106mEq/L (97-108) Carbon Dioxide Level 20mmol/L (18-29) Blood Urea Nitrogen 6mg/dL (6-20) Creatinine 0.49mg/dL (0.57-1.00) Estimat Glomerular Filtration Rate 214mL/min (>59) Glucose Level 83mg/dL (60-99) Calcium Level 8.7mg/dL (8.5-10.1) Phosphorus Level 2.9mg/dL (2.5-4.9) Magnesium Level 1.8mg/dL (1.6-2.6) Total Bilirubin 0.9mg/dL (0.0-1.2) Aspartate Amino Transf (AST/SGOT) 79U/L (0-50) Alanine Aminotransferase (ALT/SGPT) 334U/L (0-32) Alkaline Phosphatase 121U/L (25-150) Total Protein 6.0g/dL (6.4-8.4) Albumin 3.5g/dL (3.4-5.0) Lipase 77U/L (13-60) Prothrombin Time 9.8sec (8.1-12.5) Prothromb Time International Ratio 0.92ratio Plan Impression Patient chart reviewed, patient interviewed and anesthestic plan with risks, benefits, and alternatives discussed, and informed consent obtained. ASA Physical Status: ASA2 Mod Systemic Disease Anesthetic Plan: GA Bene/Risks/Altern/Consents: Yes HP Complete Prior to Induction: Yes Peter Centeno MD September 18, 2016 10:51
[2016-09-18] MEDS ORDERED: Bupivacaine 0.5%/EPI 50 mL Inj INFILTRATE ONE (11:40)
--- NOTE | 2016-09-18 11:43 | PCM.PNMED ---
Subjective Date of Service September 18, 2016 Subjective GI Progress note Patient's doing better today. She is scheduled for surgery around noon today to have a cholecystectomy. Patient has been nothing by mouth since midnight. No nausea/vomiting. Exam Vital Signs Vital Sign - Last Date Time Temp Pulse Resp B/P Pulse Ox O2 Delivery O2 Flow Rate FiO2 09/18/16 10:17 92 09/18/16 07:52 36.7 16 115/78 99 Room Air Intake and Output 09/17/16 09/17/16 09/18/16 Cumulative From/Thru 15:00 23:00 07:00 09/16/16 12:53 - 09/18/16 05:47 Intake Total 2536 ml 1394 ml 8769 ml Output Total 1450 ml 850 ml 3250 ml Balance 1086 ml 544 ml 5519 ml Intake Oral 600 ml 400 ml 1000 ml IV Total 1936 ml 994 ml 7769 ml Output Urine Total 1450 ml 850 ml 3250 ml # Voids 1 # Bowel Movements 1 0 1 Exam General: Awake and alert HEENT: PERRLA Cardio: Regular rate and rhythm Respiratory: CTA bilaterally Abdomen: Mild tenderness to right upper quadrant but otherwise benign; positive bowel sounds, no distention Extremities: No edema Psych: Appropriate mood and affect Neuro: Grossly intact IVs and Medications Medications Reviewed: Medications were reviewed in detail Lab and Diagnostics Result Diagram: 09/18/1653709/18/16537 X-Rays, CTs and MRIs PROCEDURE: US ABDOMEN, LIMITED ([id number]) INDICATIONS: upper abd pain TECHNIQUE: Real-time focused scanning was performed of the abdomen, with image documentation. COMPARISON: None. FINDINGS: Gallbladder contains multiple small calculi, less than 5 mm. There is borderline wall thickening however no pericholecystic fluid or sonographic Easley sign. No intra-or extrahepatic biliary ductal dilatation. The pancreas is not well seen due to shadowing bowel gas; recommend clinical and if needed laboratory correlation to pancreatic enzymes. IMPRESSION: Cholelithiasis and borderline gallbladder wall thickening (technically age indeterminate finding.) However no sonographic Easley sign or pericholecystic fluid. Recommend clinical correlation and to LFTs Dictated by: Tor Christensen M.D. on 09/16/2016 at 15:30 Assessment & Plan 31-year-old female who presented with gallstone pancreatitis and currently has ongoing cholecystitis who is to undergo surgery this afternoon for cholecystectomy. Patient denies any ongoing symptoms including nausea and vomiting, but the patient has 99 24 hours. Lipase is down shown resolution of the pancreatitis, as well as LFTs. This is most likely due to a gallstone that is since cleared. We will continue to follow but this time there is no intervention for GI. Thank surgery for their efforts in helping with this case. Thank you for allowing us participate in the care of this patient Resuscitation Status: CPR: Attempt Resuscitation Attending Statement Patient seen and examined. Agree with assessment and plan as described by Dr Jacobs. IOC noted. Will follow LFTs to help determine if needs ERCP or whether these filling defects will also spontaneously pass as prior to her surgery. Thierry Jacobs DO September 18, 2016 11:43 Wayne Cuenca MD September 18, 2016 18:37
[2016-09-18] MEDS ORDERED: Lactated Ringer's 1,000 ML IV SCH (11:56)
[2016-09-18] MEDS ORDERED: Lactated Ringer's 500 ML IV PRN (11:56)
[2016-09-18] MEDS ORDERED: MetoCLOpramide 5 mg/mL 2 mL Inj IVPUSH PRN ×2 (12:00→14:50)
[2016-09-18] MEDS ORDERED: Albuterol-Ipratropium 3 mL Inhalation Solution NEB PRN (12:00)
[2016-09-18] MEDS ORDERED: EPHEDrine Sulfate 50 mg/mL Inj IVPUSH PRN (12:00)
[2016-09-18] MEDS ORDERED: Atropine 0.4 mg/mL Inj IVPUSH PRN (12:00)
[2016-09-18] MEDS ORDERED: Labetalol 5 mg/mL 4 mL Inj IV PRN (12:00)
[2016-09-18] MEDS ORDERED: fentaNYL-PF 50 mCg/mL 2 mL Inj IVPUSH PRN (12:00)
[2016-09-18] MEDS ORDERED: HYDROmorphone 1 mg/mL Inj IVPUSH PRN (12:00)
[2016-09-18] MEDS ORDERED: Ondansetron 2 mg/mL 2 mL Inj IVPUSH PRN (12:00)
[2016-09-18] MEDS ORDERED: Dexamethasone 4 mg/mL Inj IVPUSH PRN (12:00)
[2016-09-18] MEDS ORDERED: Phenylephrine 10,000 mCg/mL Inj IVPUSH PRN (12:00)
[2016-09-18] MEDS ORDERED: Rocuronium 10 mg/mL 5 mL Inj ONE (13:04)
[2016-09-18] MEDS ORDERED: Ondansetron 2 mg/mL 2 mL Inj ONE (13:04)
[2016-09-18] MEDS ORDERED: Glycopyrrolate 0.2 MG/ML 1mL Inj ONE (13:04)
[2016-09-18] MEDS ORDERED: Neostigmine 1 mg/mL 10 mL Inj ONE (13:04)
[2016-09-18] MEDS ORDERED: HYDROmorphone 2 mg/mL Inj ONE (13:04)
[2016-09-18] MEDS ORDERED: Dexamethasone 4 mg/mL Inj ONE (13:04)
[2016-09-18] MEDS ORDERED: fentaNYL-PF 50 mCg/mL 2 mL Inj ONE (13:04)
[2016-09-18] MEDS ORDERED: Propofol 10,000 mCg/mL 20 mL Inj ONE (13:04)
[2016-09-18] MEDS ORDERED: HYDROmorphone 0.5 mg/0.5 mL iSecure Syringe ONE (13:07)
--- NOTE | 2016-09-18 13:12 | PCM.ANEP1 ---
Post Anesthesia Phase 1 PACU Phase 1 Assessment Date of Service: September 18, 2016 Vital Signs Vital Signs Date Time Temp Pulse Resp B/P Pulse Ox O2 Delivery O2 Flow Rate FiO2 09/18/16 13:05 52 13 111/66 100 Simple Mask 8 09/18/16 13:00 58 17 105/62 100 Simple Mask 8 09/18/16 12:56 36.3 69 12 107/61 95 Simple Mask 8 09/18/16 10:17 92 09/18/16 07:52 36.7 72 16 115/78 99 Room Air Anesthetic Administered: GA Level of Alertness: Awake, talking JOINER's with Equal Strength: Yes Pain: No Pain Scale Score: 2 Nausea or Vomiting: No Oxygen Delivery: Simple Mask Lungs: Normal Air Movement Complications: No Peter Centeno MD September 18, 2016 13:11
--- NOTE | 2016-09-18 13:34 | DRSVH ---
PROCEDURE: X-RAY OPERATIVE CHOLANGIOGRAM ([id number]) INDICATIONS: CHOLIANGIOGRAM COMPARISON: [facility], MR, MR ABD MRCP, 09/17/2016, 10:58. [facility], US, [facility] LTD, 09/16/2016, 14:39. FINDINGS: Biliary ducts: The surgeon injected contrast into the biliary ducts after cannulation of the cystic duct stump. Dilatation of the common hepatic duct versus choledochal cyst. 2 small filling defects within the distal common bile duct. No evidence for iatrogenic ductal injury. Duodenum: Contrast flows promptly through the sphincter of Oddi into the duodenum, which appears nor mal in caliber. IMPRESSION: 2 small filling defects within the distal common bile duct suspicious for retained stones . Correlate with real-time examination. Focal dilatation of the common hepatic duct, versus choledochal cyst. Dictated by: Joshua HORTA Interpreted: Tor Christensen MD on 09/18/2016 at 13:32 Transcribed by: DEANNA on 09/18/2016 at 13:33 Approved by: Tor Christensen M.D. on 09/18/2016 at 15:58
--- NOTE | 2016-09-18 13:53 | NUR ---
Return from OR Pt returned from PACU at 1340, report taken from JOSÉ MANUEL Valle. Pt is alert and oriented but drowsy and able to slide herself independently back to her bed. Pain is rated a 6 or 7/10 in upper umbilical incision site. Dilaudid recently given; discussed with pt and medicating for nausea currently, will give Morphine when pt is less drowsy. Tele replaced at this time. Will continue to monitor closely.
--- NOTE | 2016-09-18 22:12 | OP ---
[address] [address] OPERATIVE REPORT PATIENT: SRAVANTHI CARLIN : 1985 MR#: [id number] ADMIT: 09/16/2016 JOB ID: [id number] DATE OF SURGERY: 09/18/2016 SURGEON: Anurag Kern MD. SAMPLE DYE MIXER: Kermit Parra PA-C. ANESTHESIA: General. PREOPERATIVE DIAGNOSIS(ES): Gallstone pancreatitis. POSTOPERATIVE DIAGNOSIS(ES): Gallstone pancreatitis. PRINCIPAL PROCEDURE: Laparoscopic cholecystectomy with intraoperative cholangiogram. INDICATION FOR PROCEDURE: The patient is a 31-year-old female with gallstone pancreatitis who needs a cholecystectomy. PRINCIPAL FINDING: Successful laparoscopic cholecystectomy. The intraoperative cholangiogram showed normal proximal and distal biliary anatomy except for a very small filling defect right at the ampulla. I am not sure if this is representation of an air bubble or a retained stone in the distal common bile duct. This will be relayed to the GI service. The contrast did drain into the duodenum. Assistance from a surgical PA was critical in camera driving and tissue manipulation during the case. PROCEDURE COURSE: The patient was brought to the operating table and was provided with general anesthesia. The patient was given IV antibiotics and SCDs. A time-out was performed. The patient's abdomen was then prepped and draped in the usual sterile fashion. A local anesthetic was injected into the infraumbilical location and a 5 mm stab incision was made. A Veress needle was used to establish pneumoperitoneum. A 5 mm trocar was then placed and the laparoscope was introduced. A 12 mm trocar was then placed in the subxiphoid location and two additional 5 mm trocars were then placed in the right lateral abdomen. The gallbladder was then retracted cephalad and dissection of the Calot's triangle was then carried out. Some omental adhesions were taken down using cautery from the gallbladder surface. The cystic duct was able to be circumferentially isolated and it was visualized to enter the gallbladder directly. The cystic artery was seen to its right and a critical view of safety was obtained. A clip was then placed on the gallbladder cystic duct junction and a partial transection of the cystic duct was made. Intraoperative cholangiogram demonstrated normal proximal and distal biliary anatomy and the contrast did drain into the duodenum. A small filling defect was seen at the distal common bile duct on two separate images. However, the contrast did drain into the duodenum. The cholangiocatheter was then removed from the patient. Two additional clips were then placed on the proximal cystic duct and then the duct was then transected. The cystic artery was similarly clipped and divided. Electrocautery was then used to detach the gallbladder from the gallbladder fossa. The specimen was then placed into the EndoCatch bag and removed from the patient. The right upper quadrant was irrigated and suctioned. Hemostasis was verified. The clips were intact. There were no signs of bile leak or arterial bleeding at the end the case. Next, we turned our attention to the subxiphoid port. The fascial defect there was then reapproximated using 0 Vicryl suture using the Endo Close device. Next, CO2 was allowed to escape and all the trocars were then removed from the patient. Skin edges were then reapproximated using absorbable sutures. Steri-Strips and sterile dressing were then placed over each wound. By the end of procedure, needle counts and sponge counts were correct. The patient was then extubated and taken to the recovery room in stable satisfactory condition. The findings from the cholangiogram will be related to the GI service. We will repeat her labs in the morning. GEOVANY
[2016-09-18] MEDS: HYDROcodone-APAP 5-325 mg Tablet PO PRN (23:29)
[2016-09-19] MEDS: HYDROcodone-APAP 5-325 mg Tablet PO PRN ×3 (03:41→13:29)
--- NOTE | 2016-09-19 04:56 | NUR ---
Post-Op Recovery Pt has had no nausea and reported pain levels of a max of 7, has been well controlled with 10mg of Vicodin about every 4 hours. At about 0300, pt reported mild swelling in her hands and feet, and her wristband needed to be cut off because it was getting too tight. Output adequate. Bowel tones returning to normal. Reports no passage of flatus, but is belching. IV fluids continued, ambulation encouraged, SCD's remain. Ongoing hourly rounding continued.
[2016-09-19 05:10] VITALS: BP 105/70; PULSE 75; RESP 12; O2SAT 97
[2016-09-19] MEDS: Piperacillin-Tazo 3.375 Gm Inj 3.375 GM in Dextrose 5% Minibag Plus 50 ML IV SCH (06:28)
[2016-09-19] MEDS: Pantoprazole 4 mg/mL 10 mL Inj IVPUSH SCH (06:40)
[2016-09-19] MEDS: 0.9% Sodium Chloride 1,000 ML IV SCH ×2 (06:40→10:28)
[2016-09-19 06:56] LABS: BASOPHILS % (AUTO) 0.2 % (0-3); EOSINOPHILS % (AUTO) 0.4 % (0-5); MONOCYTES % (AUTO) 9.4 % (4-12); Mean Corpuscular Volume 91.5 fL (81-100); NEUTROPHILS % (AUTO) 59.5 % (40-74); Platelet Count 192 bil/L (150-400)
[2016-09-19] MEDS: Heparin 5,000 Unit/mL Inj SUBQ SCH (08:18)
--- NOTE | 2016-09-19 08:33 | NUR ---
Patient ambulated marsh this morning, tolerated well with no SOB. Did complain of pain shortly after returning and was relieve with medication and heating pad. Is tolerating oral liquid diet and food well and looking forward to progressing to solid. No complaints of nausea or vomiting and has started burping, no passage of gas or bowel. encouraged continued ambulation Addendum: 09/19/16 at 1346 by SADA VALADEZ DC'd peripheral IV, fully intact
--- NOTE | 2016-09-19 08:38 | PCM.PNSURG ---
Subjective Visit Information: Reason for Visit Gall Stone, Pancreatitis Surgery/Surgery Date LAP FELICE W/GRAMS 09/18/16 Post-Op Day # Date of Admission: September 16, 2016 at 15:39 Hospital Day # Subjective: doing fine, abd feels better, no n/v overnight Objective Objective Arousable in bed Abd: dressings intact, soft T bili 0.7, lipase 33 this AM Vital Sign- Last 8 Hours Date Time Temp Pulse Resp B/P Pulse Ox O2 Delivery O2 Flow Rate FiO2 09/19/16 05:10 36.7 75 12 105/70 97 Room Air Intake and Output- Last 8 Hour 09/19/16 Cumulative From/Thru 07:00 09/16/16 12:53 - 09/19/16 06:08 Intake Total 2982 ml 60487 ml Output Total 1900 ml 6320 ml Balance 1082 ml 7848 ml Intake Oral 1118 ml 2518 ml IV Total 1864 ml 81228 ml Output Urine Total 1900 ml 6300 ml Estimated Blood Loss 20 ml # Voids 1 # Bowel Movements 0 1 Result Diagram: 09/19/16 0525 09/19/16 0525 Assessment & Plan Impression POD #1 s/p lap felice for gallstone pancreatitis Possible retained CBD stone on cholangiogram, but LFT's improving Problems: Plan Await GI service decision Possible d/c home with outpt GI followup Resuscitation Status: CPR: Attempt Resuscitation Anurag Kern MD September 19, 2016 08:38
[2016-09-19 09:40] VITALS: BP 97/65; PULSE 74; RESP 17; O2SAT 96
--- NOTE | 2016-09-19 10:14 | PCM.PNMED ---
Subjective Date of Service September 19, 2016 Subjective GI progress note Yesterday the patient one for cholecystectomy with cholangiogram revealing 2 filling defects consistent with retained, nonobstructing, common bile duct stones. Patient states this morning that she is doing much better and is able to get up and walk around. Having flatus and feels like she has to have a bowel movement. She denies upper right quadrant pain, nausea, vomiting, abdominal pain, chest pain, shortness of breath. Exam Vital Signs Vital Sign - Last Date Time Temp Pulse Resp B/P Pulse Ox O2 Delivery O2 Flow Rate FiO2 09/19/16 09:40 36.8 74 17 97/65 96 Room Air 09/18/16 13:05 8 Intake and Output 09/18/16 09/18/16 09/19/16 Cumulative From/Thru 15:00 23:00 07:00 09/16/16 12:53 - 09/19/16 06:08 Intake Total 950 ml 1467 ml 2982 ml 14465 ml Output Total 20 ml 1150 ml 1900 ml 6320 ml Balance 930 ml 317 ml 1082 ml 7848 ml Intake Oral 400 ml 1118 ml 2518 ml IV Total 950 ml 1067 ml 1864 ml 35976 ml Output Urine Total 1150 ml 1900 ml 6300 ml Estimated Blood Loss 20 ml 20 ml # Voids 1 # Bowel Movements 0 1 Exam General: Awake and alert HEENT: PERRLA Cardio: Regular rate and rhythm Respiratory: CTA bilaterally Abdomen: Positive bowel sounds, incisions are clean and intact Extremities: No edema Psych: Appropriate mood and affect Neuro: Grossly intact IVs and Medications Medications Reviewed: Medications were reviewed in detail Lab and Diagnostics Result Diagram: 09/19/16 0525 09/19/16 0525 X-Rays, CTs and MRIs PROCEDURE: US ABDOMEN, LIMITED ([id number]) INDICATIONS: upper abd pain TECHNIQUE: Real-time focused scanning was performed of the abdomen, with image documentation. COMPARISON: None. FINDINGS: Gallbladder contains multiple small calculi, less than 5 mm. There is borderline wall thickening however no pericholecystic fluid or sonographic Easley sign. No intra-or extrahepatic biliary ductal dilatation. The pancreas is not well seen due to shadowing bowel gas; recommend clinical and if needed laboratory correlation to pancreatic enzymes. IMPRESSION: Cholelithiasis and borderline gallbladder wall thickening (technically age indeterminate finding.) However no sonographic Easley sign or pericholecystic fluid. Recommend clinical correlation and to LFTs Dictated by: Tor Christensen M.D. on 09/16/2016 at 15:30 Assessment & Plan 31-year-old female who presented with gallstone pancreatitis and cholecystitis who underwent cholecystectomy yesterday with identification of 2 retained small stones with common bile duct. Reviewed patient's labs show decrease in LFT and a normal alkaline phosphatase. Patient denies any symptoms of nausea/vomiting or abdominal pain. She is already beginning to advance her diet and doing well so far. She can continue to advance her diet per surgery recommendations. Overall the patient seems to be doing much better this time does not appear that intervention on 2 common bile duct stones is warranted as labs have normalized. We will continue to follow with the patient while she is here in the hospital but for this time we are not planning any intervention. Thank you for allowing us to participate in the care of this patient VTE Mechanical Devices: Intermittant Pneumatic CD Resuscitation Status: CPR: Attempt Resuscitation Attending Statement Patient d/c'd home prior to my availability to round at bedside. Agree c d/c home and followup LFTs in 7-10 days. Thierry Jacobs DO September 19, 2016 10:14 Wayne Cuenca MD September 19, 2016 17:05
[2016-09-19 10:45] VITALS: PULSE 80
[2016-09-19] MEDS ORDERED: HYDR-4003 PO (11:26)
--- NOTE | 2016-09-19 11:29 | PCM.DIMED ---
Discharge Instructions Date of Service September 19, 2016 Dates of Hospitalization September 16, 2016 at 15:39 Discharge Diagnosis Discharge Diagnosis acute pancreatitis and cholecystitis likely due to cholelithiasis Medication Instructions You can take Percocet 1 tablet every 4 hours as needed Take stool softners if you require percocet for pain for bowel movement Diet No restrictions Activity No restrictions Call your provider Fever or Chills, Other (abdominal pain) Patient Instructions You were hospitalized with significant abdominal pain, found to have acute pancreatitis and cholecystitis. Your treated medically and also underwent gallbladder removal successfully Please note that you need to have follow up laboratory test to see your liver enzymes 7-10days prior to appointment with Please follow up with Dr. Kern in 2 weeks in the clinic Please follow up with your primary doctor in 2weeks If you are taking narcotic pain medicine during recovery, you might get constipated. Take a stool softener to prevent this problem. If you develop any the following symptoms in the weeks after surgery, call your doctor: Fever or chills Redness or swelling around the cuts from your surgery Nausea or vomiting Cramping or more severe belly pain Bloating (feeling like your belly is full of gas) Yellow skin or eyes Will the surgery affect how my body breaks down food? The surgery does not affect digestion very much. But about half the people who have surgery have mild symptoms afterward, including loose bowel movements, gas, or bloating. These symptoms usually get better. Follow-up Provider: Anurag Kren MD Follow-up with PCP in: 2 weeks Aurelio uLbin MD September 19, 2016 11:29
--- NOTE | 2016-09-19 11:51 | PCM.DC.MED ---
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 [facility], US, [facility]BD[facility]EN LTD, 09/16/2016, 14:39. FINDINGS: Biliary ducts: The surgeon injected contrast into the biliary ducts after cannulation of the cystic duct stump. Dilatation of the common hepatic duct versus choledochal cyst. 2 small filling defects within the distal common bile duct. No evidence for iatrogenic ductal injury. Duodenum: Contrast flows promptly through the sphincter of Oddi into the duodenum, which appears normal in caliber. IMPRESSION: 2 small filling defects within the distal common bile duct suspicious for retained stones. Correlate with real-time examination. Focal dilatation of the common hepatic duct, versus choledochal cyst. Dictated by: Joshua Luna [facility] Interpreted: Tor Christensen MD on 09/18/2016 at 13:32 Transcribed by: DEANNA on 09/18/2016 at 13:33 Approved by: Tor Christensen M.D. on 09/18/2016 at 15:58 PROCEDURE: MR ABDOMEN MRCP INDICATIONS: GALLSTONE/PANCREATITIS TECHNIQUE: Coronal HASTE through the abdomen, axial 2-D FLASH in- and [id number], and breath-hold T2 FSE with fat saturation through the biliary system and pancreas. Oblique coronal and axial thin-slice HASTE, radial thick-slab HASTE centered on the extrahepatic bile ducts. Intravenous secretin: Not requested. COMPARISON: [facility], [facility], ABDOMEN LTD, 09/16/2016, 14:39. FINDINGS: Image quality: Excellent. Pancreas and biliary system: Intra- and extra-hepatic biliary ducts are non dilated. Pancreas is normal in morphology, without adjacent soft tissue edema. No peripancreatic fluid. Pancreatic duct is normal in caliber, without developmental anomalies. There are gallstones within gallbladder including the gallbladder neck. There is a possible stone in the cystic duct. Mild gallbladder wall thickening and a small amount of pericholecystic fluid suggest acute cholecystitis. Other solid organs: Liver and spleen are normal in size. There are multiple cysts in the spleen. No adrenal nodules. Both kidneys are normal in size, without hydronephrosis. Nodes and vessels: No retroperitoneal or mesenteric adenopathy by size criteria. Aorta and inferior vena cava are normal in size. Bowel and peritoneum: Unenhanced bowel loops are normal in caliber. No free fluid. Lung bases: No basal pleural effusions. Heart size is normal. Bones and soft tissues: No ventral hernias. Bone marrow is of normal overall signal. IMPRESSION: 1. Cholelithiasis with stones in the gallbladder neck and a possible cystic duct stone. There is mild gallbladder wall thickening and a small amount of pericholecystic fluid. Recommend clinical correlation for acute cholecystitis. 2. Normal MR appearance of pancreas. 3. Splenic cysts. Dictated by: Nic Resendiz M.D. on 09/17/2016 at 11:17 Approved by: Nic Resendiz M.D. on 09/17/2016 at 12:41 PROCEDURE: US ABDOMEN, LIMITED ([id number]) INDICATIONS: upper abd pain TECHNIQUE: Real-time focused scanning was performed of the abdomen, with image documentation. COMPARISON: None. FINDINGS: Gallbladder contains multiple small calculi, less than 5 mm. There is borderline wall thickening however no pericholecystic fluid or sonographic Easley sign. No intra-or extrahepatic biliary ductal dilatation. The pancreas is not well seen due to shadowing bowel gas; recommend clinical and if needed laboratory correlation to pancreatic enzymes. IMPRESSION: Cholelithiasis and borderline gallbladder wall thickening (technically age indeterminate finding.) However no sonographic Easley sign or pericholecystic fluid. Recommend clinical correlation and to LFTs Dictated by: Tor Christensen M.D. on 09/16/2016 at 15:30 Brief History HPI obtained by on 09/16 31-year-old lady with no significant past medical history except recently treated for pneumonia with antibiotics 2 weeks ago presented to the emergency room due to back pain, nausea and vomiting of 2 days. She states she started to have epigastric and back pain 2 days ago. Pain is dull, intermittent, initially 4/10 pain. This was followed by episodes of vomiting and nausea. Symptoms slightly improved yesterday . Yesterday she noted dark urine and continued to drink more water. She went to work today and felt more severe episode of back pain 8/10 and nausea which prompted ED visit. Did not notice any jaundice. noted dark urine. Denies fever. Denies diarrhea. Drinks 2 glasses of wine /week ED course : Vital signs and exam are unremarkable. CBC unremarkable. Elevated liver enzymes total bilirubin 3.7, AST 299, ALT 740, alkaline phosphatase 176, lipase 2773 US :cholelithiasis with no evidence of cholecystitis GI Dr Cuenca contacted by ED, and she requested for gallbladder pancreatitis Hospital Course 31-year-old lady with no significant past medical history except recently treated for pneumonia with antibiotics 2 weeks ago presented to the emergency room due to back pain, nausea and vomiting of 2 days. acute cholecysitis and acute pancreatitis, On admission, Total bilirubin 3.7, AST 299, ALT 740, alkaline phosphatase 176, lipase 2773,abd US showed Cholelithiasis and borderline gallbladder wall thickening. MRCP showed Cholelithiasis with stones in the gallbladder neck and a possible cystic duct stone, normal appearing pancreas. patient was started on zosyn but hemodynamically remained stable, afebrile. GI and general surgery were consulted. Patient underwent laparoscopic cholecystectomy without any complication. Liver enzymes and bilirubin were significantly improved. Given intraoperative cholangiogram findings, possible small defects in distal CBD, ERCP was discussed. However, given stable clinical condition, improvement of labs, It was not pursued. patient will be follow up with and repeat LFTs prior to clinic visit. Exam Vital Signs (Last) Date Time Temp Pulse Resp B/P Pulse Ox O2 Delivery O2 Flow Rate FiO2 09/19/16 10:45 80 09/19/16 09:40 36.8 17 97/65 96 Room Air 09/18/16 13:05 8 Exam NAD, comfortably laying down on the bed no JVD, MMM, no LAD RRR, nl s1, s2 no mrg CTAB, no w,c S,ND,mild tenderness,normoactive BS+, fresh surgical scar from Lap felice warm, no edema, pulses 2/2 Test 09/16/16 13:48 09/16/16 16:00 09/18/16 05:38 09/18/16 08:10 Hold Joel Top Tube Received (Received) Hold Urine Received (Received) Phosphorus Level 2.9mg/dL (2.5-4.9) Magnesium Level 1.8mg/dL (1.6-2.6) Prothrombin Time 9.8sec (8.1-12.5) Prothromb Time International Ratio 0.92ratio Test 09/19/16 05:25 White Blood Count 5.0th/mm3 (3.8-10.1) Red Blood Count 3.42mil/mm3 (3.90-5.20) Hemoglobin 10.6g/dL (12.0-15.6) Hematocrit 31.3% (35.0-46.0) Mean Corpuscular Volume 91.5fL (81-100) Mean Corpuscular Hemoglobin 31.0pg (27.0-35.0) Mean Corpuscular Hemoglobin Concent 33.9% (32.0-37.0) Red Cell Distribution Width 12.6% (12.3-15.4) Platelet Count 192bil/L (150-400) Neutrophils (%) (Auto) 59.5% (40-74) Lymphocytes (%) (Auto) 30.3% (14-46) Monocytes (%) (Auto) 9.4% (4-12) Eosinophils (%) (Auto) 0.4% (0-5) Basophils (%) (Auto) 0.2% (0-3) Sodium Level 140mEq/L (134-144) Potassium Level 3.7mEq/L (3.5-5.2) Chloride Level 106mEq/L (97-108) Carbon Dioxide Level 20mmol/L (18-29) Blood Urea Nitrogen 6mg/dL (6-20) Creatinine 0.49mg/dL (0.57-1.00) Estimat Glomerular Filtration Rate 214mL/min (>59) Glucose Level 86mg/dL (60-99) Calcium Level 8.3mg/dL (8.5-10.1) Total Bilirubin 0.7mg/dL (0.0-1.2) Aspartate Amino Transf (AST/SGOT) 94U/L (0-50) Alanine Aminotransferase (ALT/SGPT) 264U/L (0-32) Alkaline Phosphatase 102U/L (25-150) Total Protein 5.5g/dL (6.4-8.4) Albumin 3.4g/dL (3.4-5.0) Lipase 33U/L (13-60) Discharge Medications As needed Hydrocodone-Acetaminophen 5-325 mg (Hydrocodone-Acetaminophen 5-325 mg) 1 Each Tablet 1-2 TABLET PO Q3H PRN PRN For Pain Prescribed by: AURELIO MALAGON MD Ibuprofen (Ibuprofen) 400 Mg Tablet 400 MG PO QID PRN PRN For Pain (Reported) Lorazepam (Lorazepam) 1 Mg Tablet 1 MG PO DIRECTED PRN PRN For Anxiety ( Reported) Additional med instructions You can take Percocet 1 tablet every 4 hours as needed Take stool softners if you require percocet for pain for bowel movement Followup Plan Disposition: home Discharge Diet: No restrictions Discharge Activity: No restrictions Patient Instructions You were hospitalized with significant abdominal pain, found to have acute pancreatitis and cholecystitis. Your treated medically and also underwent gallbladder removal successfully Please note that you need to have follow up laboratory test to see your liver enzymes 7-10days prior to appointment with Please follow up with Dr. Kern in 2 weeks in the clinic Please follow up with your primary doctor in 2weeks If you are taking narcotic pain medicine during recovery, you might get constipated. Take a stool softener to prevent this problem. If you develop any the following symptoms in the weeks after surgery, call your doctor: Fever or chills Redness or swelling around the cuts from your surgery Nausea or vomiting Cramping or more severe belly pain Bloating (feeling like your belly is full of gas) Yellow skin or eyes Will the surgery affect how my body breaks down food? The surgery does not affect digestion very much. But about half the people who have surgery have mild symptoms afterward, including loose bowel movements, gas, or bloating. These symptoms usually get better. Follow-up Provider: Anurag Kern MD Follow-up with PCP in: 2 weeks Time spent 65min Aurelio Malagon MD September 19, 2016 11:31
--- NOTE | 2016-09-19 13:23 | NUR ---
Social Work: Discharge D: EMR/discharge orders reviewed. Pt is on day 3 of hospitalization. Per MD notes, patient states this morning she is doing much better and is able to get up and walk around. Pt to discharge home with mother via POV. SW does not anticipate any discharge needs at this time. SW will continue to follow. A: Pt who is independent at baseline. P: Pt to discharge home with mother via POV. SW does not anticipate any discharge needs at this time. LOLA Patel
--- NOTE | 2016-09-19 14:00 | PATH ---
SURGICAL PATHOLOGY Attending Physician:Anurag Kern M.D. CASE STATUS: Signed Out PATIENT NAME: SRAVANTHI CARLIN PID: [id number] : 1985 DATE COLLECTED:09/18/2016 00:00 SPECIMEN: Gallbladder CLINICAL HISTORY: 1). GALLBLADDER FINAL DIAGNOSIS: 1.GALLBLADDER: CHOLELITHIASIS WITH ASSOCIATED MILD CHRONIC CHOLECYSTITIS. ICD10 CODE K80.66 GROSS DESCRIPTION: The specimen is received in one formalin filled container labeled with the patient's name, sublabeled "gallbladder" and consists of a 9.0 x 4.0 x 4.0 CM gallbladder. The serosa is smooth. The wall is 0.2-0.3 CM in thickness. The mucosa is a green osborn in color. The lumen contains a dark green mucoid material and approximately 50+ green to yellow-osborn calculi which range in size from 0.1-0.7 CM in greatest dimension. 5 sales representative marine supplies sections are submitted in one cassette. 09/18/2016 [facility] MICRO DESCRIPTION: See diagnosis. ICD-9 CODES: CPT CODES: 1: 53574 Electronically Signed Out Wayne Johnson MD [facility] Pathology [facility] [address], [place] [address] Technical component performed at [facility], [facility] [address], [place], [address]
--- NOTE | 2016-09-19 15:04 | NUR ---
Discharge Patient discharged home with mother . Pt given verbal and written post op instructions and agrees to understanding them. Patient given prescription for pain meds . Pt will call to schedule follow up appointment and understands to have her labs drawn in 1 week.
== END 2016-09-19 14:15 | disposition home or self-care (01) | DRG 418 ==
LOC: SED 12:45 → OSC 15:39
PROVIDERS: ADMIT Internal Medicine; ATTEND Internal Medicine
PROC: BF101ZZ Fluoroscopy of Bile Ducts using Low Osmolar Contrast (ICD-10-PCS; 2016-09-18)
PROC: 0FT44ZZ Resection of Gallbladder, Percutaneous Endoscopic Approach (ICD-10-PCS; principal; 2016-09-18 11:15)
DX: K85.10 Biliary acute pancreatitis without necrosis or infection (principal); K80.00 Calculus of gallbladder with acute cholecystitis without obstruction; F17.210 Nicotine dependence, cigarettes, uncomplicated

== ENCOUNTER → 2017-01-30 | Day surgery (SDC) | payer OTHER ==
[~2017-01-30] VITALS: Ht 154.9 cm; Wt 80.3 kg
[~2017-01-30] MED LIST: 0.9% Sodium Chloride 1,000 ML IV ONE; HYDR-4003 PO; IBUP400T22 PO; LORA1TAB PO; fentaNYL-PF 50 mCg/mL 2 mL Inj ONE
[2017-01-30 11:42] VITALS: BP 123/85; PULSE 80; RESP 16; O2SAT 99
[2017-01-30 12:33] VITALS: BP 111/60; PULSE 74; RESP 14; O2SAT 98
--- NOTE | 2017-01-30 13:29 | ENDO ---
[address] [address] ENDOSCOPY PROCEDURE PATIENT: SRAVANTHI CARLIN : 1985 MR#: [id number] ADMIT: 01/30/2017 JOB ID: [id number] DATE OF SERVICE: 01/30/2017 TYPE OF OPERATION: Esophagogastroduodenoscopy with biopsy. PREOPERATIVE DIAGNOSIS: Abdominal pain. POSTOPERATIVE DIAGNOSIS: Normal upper endoscopy. ANESTHESIA: Fentanyl 100 mcg, Versed 4 mg IV administered. COMPLICATIONS: None. BLOOD LOSS: Minimal. DESCRIPTION OF PROCEDURE: After risks and benefits explained to the patient, informed consent was obtained. After anesthesia administered, upper endoscope was then inserted in the mouth, intubated into the esophagus, stomach, second portion of duodenum. Mucosa carefully examined. After procedure was done, the scope was withdrawn and the procedure terminated. FINDINGS: Upon inspection of the esophagus, esophagus was normal without masses, ulcers, or lesions. Z-line located at 40 cm from incisors. Upon entering the stomach, stomach was also normal without masses, ulcers, or lesions. Retroflexion of the duodenal bulb, first and second portion normal. Biopsies taken of antrum, body. IMPRESSIONS: Normal upper endoscopy, status post biopsy. RECOMMENDATION: Await pathology results. Follow up with GI clinic as needed.
--- NOTE | 2017-01-31 17:59 | PATH ---
SURGICAL PATHOLOGY Attending Physician:Farzad Enrique MD CASE STATUS: Signed Out PATIENT NAME: SRAVANTHI CARLIN PID: [id number] : 1985 DATE COLLECTED:01/30/2017 22:04 SPECIMEN: 1: Stomach, Antrum, Biopsy 2: Gastric, Biopsy CLINICAL HISTORY: 1). ANTRUM BIOPSY 2). GASTRIC BODY BIOPSY, RULE OUT H.PYLORI FINAL DIAGNOSIS: 1. & 2.ANTRUM, GASTRIC BODY, BIOPSIES: GASTRIC ANTRAL AND BODY MUCOSA WITH NO DIAGNOSTIC ABNORMALITY. No evidence of Helicobacter organisms on H&E stain. Negative for intestinal metaplasia, dysplasia, or malignancy. ICD10 R10.9 GROSS DESCRIPTION: The specimen is received in two formalin filled containers labeled with the patient's name. 1). The specimen is labeled "antrum" and consists of 3 extremely tiny portions of tissue which aggregate to 0.2 x 0.2 x 0.1 CM. The specimen is entirely submitted in cassette 1A. 2). The specimen is labeled "gastric body" and consists of 2 portions of tissue which aggregate to 0.3 x 0.3 x 0.2 CM. The specimen is entirely submitted in cassette 2A. 01/30/2017MD MICRO DESCRIPTION: See diagnosis. ICD-9 CODES: CPT CODES: 1: 48659 2: 63427 Electronically Signed Out Azeem Leonard MD, Ph.D. [facility] Pathology [facility] [address], [place] [address] Technical component performed at [facility], [facility] [address], [place], [address]
== END | disposition home or self-care (01) ==
LOC: END 00:46
PROVIDERS: ATTEND Internal Medicine Gastroenterology
DX: R10.10 Upper abdominal pain, unspecified (principal); K85.10 Biliary acute pancreatitis without necrosis or infection
CPT/HCPCS: 43239; G0500; J2250; J3010; J7030